=== PATIENT | female | born 1980 | race Caucasian/White ===

== ENCOUNTER 2017-11-26 19:03 | Emergency (ER) | payer OTHER ==
[2017-11-26 19:13] VITALS: BP 123/77; PULSE 78; TEMP 98.4; BMI 33.7
--- NOTE | 2017-11-26 19:16 | PDOC ---
Rapid Medical Evaluation Chief Complaint: Pain Time Seen by Provider: 11/26/17 19:14 Medical Evaluation: Allergies Allergy/AdvReac Type Severity Reaction Status Date / Time No Known Allergies Allergy Verified 11/26/17 19:09 Vital Signs Temp Pulse Resp BP Pulse Ox 98.4 F 78 18 123/77 100 11/26/17 19:09 11/26/17 19:09 11/26/17 19:09 11/26/17 19:09 11/26/17 19:09 11/26/17 19:14 I have performed a brief in-person evaluation of this patient. The patient presents with a chief complaint of: epigastric pain x 1 week, + nausea, denies V/D, hx of gastric bypass/appy/csection Pertinent physical exam findings: well appearing I have ordered the following: Upreg The patient will proceed to the ED for further evaluation.
[2017-11-26 20:29] LABS: BASO % 0.5 % (0-2.0); EOS % 2.5 % (0-4.5); HEMATOCRIT 34.9 % (32.4-45.2); HEMOGLOBIN 11.7 GM/dL (10.7-15.3); LYMPH % 34.8 % (8-40); MCH 31.8 pg (25.7-33.7); MCHC 33.4 g/dl (32.0-36.0); MEAN CELL VOLUME 95.1 fl (80-96); MEAN PLT VOLUME 7.6 fl (7.5-11.1); MONO % 6.7 % (3.8-10.2); NEUT % 55.5 % (42.8-82.8); PLATELET COUNT 253 K/MM3 (134-434); RBC 3.67 M/mm3 (3.60-5.2); RDW 12.7 % (11.6-15.6); WHITE BLOOD COUNT 6.8 K/mm3 (4.0-10.0)
[2017-11-26 21:06] LABS: ALBUMIN 3.9 g/dl (3.4-5.0); ANION GAP 5 (8-16); BLOOD UREA NITROGEN 16 mg/dL (7-18); CALCIUM 8.5 mg/dL (8.5-10.1); CHLORIDE 104 mmol/L (98-107); CO2 29 mmol/L (21-32); CREATININE 0.5 mg/dL (0.55-1.02); GLUCOSE,RANDOM 91 mg/dL (74-106); POTASSIUM 4.2 mmol/L (3.5-5.1); SGOT/AST 17 U/L (15-37); SGPT/ALT 32 U/L (12-78); SODIUM 138 mmol/L (136-145)
[2017-11-26 21:07] LABS: ALK PHOS 66 U/L (45-117); BILIRUBIN,TOTAL 0.3 mg/dL (0.2-1.0); TOT PROT 6.8 g/dl (6.4-8.2)
[2017-11-26] MEDS ORDERED: DICYCLOMINE HCL 10 MG CAPSULE PO ONE (22:57)
--- NOTE | 2017-11-26 23:04 | PDOC ---
History of Present Illness - General History Source: Patient <Herman Cantor - Last Filed: 11/26/17 22:57> - General History Source: Patient Exam Limitations: No Limitations - History of Present Illness Initial Comments: 11/26/17 23:10 The patient is a 37 year old female with a significant PMH of peptic ulcer disease and gastric bypass surgery on 08/22/2015 who presents to the emergency department with epigastric pain associated with food intake. She reports her epigastric pain with associated nausea presents only when she eats and usually resolves in 30 min - 1 hour. She reports having this epigastric pain intermittently since her gastric bypass surgery which has worsened over the past week and particularly today, prompting her visit. She reports taking Omeprazole to no relief. She denies vomiting or diarrhea. The patient denies fever, chills, and constipation. Denies chest pain, shortness of breath, headache and dizziness. Denies dysuria, frequency, urgency and hematuria. Allergies: NKA Past surgical history: Gastric bypass (2 years ago). Appendectomy. . Social history: No reported cigarette, alcohol, or drug use. PCP: Not on Staff. <Raghavendra Bautista - Last Filed: 11/26/17 23:11> - General Chief Complaint: Pain Stated Complaint: STOMACH PAIN Time Seen by Provider: 11/26/17 19:14 Past History - Past Medical History Anemia: Yes Asthma: No Cancer: No Cardiac Disorders: No COPD: No Diabetes: No HTN: No Seizures: No Thyroid Disease: No - Surgical History Abdominal Surgery: Yes (CYSTS REMOVED FROM OVARY) Appendectomy: Yes GI Surgery: Yes (GASTRIC BYPASS) - Reproductive History (#): 2 Para: 1 Cervical CA: No Dysfunctional Uterine Bleeding: No Ectopic : No Endometrial CA: No Polycystic Ovaries: No Therapeutic (s) & number: No Tubal Ligation: No - Suicide/Smoking/Psychosocial Hx Smoking Status: No Smoking History: Never smoked Have you smoked in the past 12 months: No Number of Cigarettes Smoked Daily: 0 Information on smoking cessation initiated: No Hx Alcohol Use: No Drug/Substance Use Hx: No Substance Use Type: None Hx Substance Use Treatment: No <Herman Cantor - Last Filed: 11/26/17 22:57> <Raghavendra aButista - Last Filed: 11/26/17 23:11> - Past Medical History Allergies/Adverse Reactions: Allergies Allergy/AdvReac Type Severity Reaction Status Date / Time No Known Allergies Allergy Verified 11/26/17 19:09 Home Medications: Ambulatory Orders Calcium Carbonate/Vitamin D3 [Calcium 600 + Vit D 400 Tablet] 1 each PO BID Iron Polysaccharide Complex [Ferrex 150] 150 mg PO DAILY 09/11/15 Multivitamins [Tab-A-Vit -] 1 tab PO BID 09/11/15 Acetaminophen W/ Codeine #3 [Tylenol # 3 -] 1 tab PO Q6H #20 tablet 09/12/15 Omeprazole [Prilosec] 40 mg PO DAILY #30 capsule. 09/12/15 Dicyclomine HCl [Bentyl] 20 mg PO Q6H #30 tablet 11/26/17 Review of Systems - Review of Systems Able to Perform ROS?: Yes Comments:: 11/26/17 23:10 CONSTITUTIONAL: Absent: fever, chills, diaphoresis, generalized weakness, malaise, loss of appetite HEENT: Absent: rhinorrhea, nasal congestion, throat pain, throat swelling, difficulty swallowing, mouth swelling, ear pain, eye pain, visual Changes CARDIOVASCULAR: Absent: chest pain, syncope, palpitations, irregular heart rate, lightheadedness , peripheral edema RESPIRATORY: Absent: cough, shortness of breath, dyspnea with exertion, orthopnea, wheezing, stridor, hemoptysis GASTROINTESTINAL: (+) Epigastric pain associated with food intake. (+) Nausea. Absent: abdominal distension, vomiting, diarrhea, constipation, melena, hematochezia GENITOURINARY: Absent: dysuria, frequency, urgency, hesitancy, hematuria, flank pain, genital pain MUSCULOSKELETAL: Absent: myalgia, arthralgia, joint swelling SKIN: Absent: rash, itching, pallor HEMATOLOGIC/IMMUNOLOGIC: Absent: easy bleeding, easy bruising, lymphadenopathy, frequent infections ENDOCRINE: Absent: unexplained weight gain, unexplained weight loss, heat intolerance, cold intolerance NEUROLOGIC: Absent: headache, focal weakness or paresthesias, dizziness, unsteady gait, seizure, mental status changes, bladder or bowel incontinence PSYCHIATRIC: Absent: anxiety, depression, suicidal or homicidal ideation, hallucinations. <Raghavendra Bautista - Last Filed: 11/26/17 23:11> *Physical Exam - Vital Signs Last Vital Signs Temp Pulse Resp BP Pulse Ox 98.4 F 78 18 123/77 100 11/26/17 19:09 11/26/17 19:09 11/26/17 19:09 11/26/17 19:09 11/26/17 19:09 <DevaughnHerman - Last Filed: 11/26/17 22:57> - Vital Signs Last Vital Signs Temp Pulse Resp BP Pulse Ox 98.4 F 78 18 123/77 100 11/26/17 19:09 11/26/17 19:09 11/26/17 19:09 11/26/17 19:09 11/26/17 19:09 - Physical Exam Comments: 11/26/17 23:11 GENERAL: Well developed, well nourished. Awake and alert. No acute distress. HEENT: Normocephalic, atraumatic. PERRLA, EOMI. No conjunctival pallor. Sclera are non- icteric. Moist mucous membranes. Oropharynx is clear. NECK: Supple. Full ROM. No JVD. Carotid pulses 2+ and symmetric, without bruits. No thyromegaly. No lymphadenopathy. CARDIOVASCULAR: Regular rate and rhythm. No murmurs, rubs, or gallops. Distal pulses are 2+ and symmetric. PULMONARY: No evidence of respiratory distress. Lungs clear to auscultation bilaterally. No wheezing, rales or rhonchi. ABDOMINAL: Soft. Non-tender. Non-distended. No rebound or guarding. No organomegaly. Normoactive bowel sounds. MUSCULOSKELETAL Normal range of motion at all joints. No bony deformities or tenderness. No CVA tenderness. EXTREMITIES: No cyanosis. No clubbing. No edema. No calf tenderness. SKIN: Warm and dry. Normal capillary refill. No rashes. No jaundice. NEUROLOGICAL: Alert, awake, appropriate. Cranial nerves 2-12 intact. No deficits to light touch and temperature in face, upper extremities and lower extremities. No motor deficits in the in face, upper extremities and lower extremities. Normoreflexic in the upper and lower extremities. Normal speech. Toes are downgoing bilaterally. Gait is normal without ataxia. PSYCHIATRIC: Cooperative. Good eye contact. Appropriate mood and affect. <Raghavendra Bautista - Last Filed: 11/26/17 23:11> ED Treatment Course - LABORATORY CBC & Chemistry Diagram: 11/26/17 20:19 11/26/17 20:19 - ADDITIONAL ORDERS Additional order review: Laboratory Results 11/26/17 11/26/17 11/26/17 20:30 20:19 20:19 Sodium 138 Potassium 4.2 Chloride 104 Carbon Dioxide 29 Anion Gap 5 L BUN 16 Creatinine 0.5 L Creat Clearance w eGFR > 60 Random Glucose 91 Calcium 8.5 Total Bilirubin 0.3 D AST 17 ALT 32 Alkaline Phosphatase 66 Total Protein 6.8 Albumin 3.9 Lipase 159 Urine HCG, Qual Negative 11/26/17 20:19 RBC 3.67 MCV 95.1 MCHC 33.4 RDW 12.7 MPV 7.6 Neutrophils % 55.5 Lymphocytes % 34.8 D Monocytes % 6.7 Eosinophils % 2.5 Basophils % 0.5 <Herman Cantor - Last Filed: 11/26/17 22:57> - LABORATORY CBC & Chemistry Diagram: 11/26/17 20:19 11/26/17 20:19 - ADDITIONAL ORDERS Additional order review: Laboratory Results 11/26/17 11/26/17 11/26/17 20:30 20:19 20:19 Sodium 138 Potassium 4.2 Chloride 104 Carbon Dioxide 29 Anion Gap 5 L BUN 16 Creatinine 0.5 L Creat Clearance w eGFR > 60 Random Glucose 91 Calcium 8.5 Total Bilirubin 0.3 D AST 17 ALT 32 Alkaline Phosphatase 66 Total Protein 6.8 Albumin 3.9 Lipase 159 Urine HCG, Qual Negative 11/26/17 20:19 RBC 3.67 MCV 95.1 MCHC 33.4 RDW 12.7 MPV 7.6 Neutrophils % 55.5 Lymphocytes % 34.8 D Monocytes % 6.7 Eosinophils % 2.5 Basophils % 0.5 <Raghavendra Bautista - Last Filed: 11/26/17 23:11> *DC/Admit/Observation/Transfer - Discharge Dispostion Admit: No <Herman Cantor - Last Filed: 11/26/17 22:57> - Attestations Scribe Attestion: 11/26/17 23:11 Documentation prepared by Raghavendra Bautista, acting as medical assistant float for Herman Cantor DO. <Raghavendra Bautista - Last Filed: 11/26/17 23:11> Diagnosis at time of Disposition: Abdominal pain Qualifiers: Abdominal location: epigastric Qualified Code(s): R10.13 - Epigastric pain - Discharge Dispostion Disposition: HOME Condition at time of disposition: Stable - Prescriptions Prescriptions: Dicyclomine HCl [Bentyl] 20 mg PO Q6H #30 tablet - Referrals Referrals: ON STAFF,NOT [Primary Care Provider] - Juancho Madera MD [Staff Physician] - - Patient Instructions Printed Discharge Instructions: DI for Abdominal Pain-Adult Additional Instructions: Please follow up with the doctor referred to you from the ER. TRy to eat 6 small meals throughout the day. Take medication as directed Print Language: BRUNEIAN - Post Discharge Activity
[2017-11-26] MEDS ORDERED: DICYCLOMINE HCL 10 MG CAPSULE ONE (23:20)
== END 2017-11-26 23:33 | disposition home or self-care (01) ==
LOC: JER 19:03
DX: R10.13 Epigastric pain (principal); Z98.84 Bariatric surgery status; Z87.11 Personal history of peptic ulcer disease
CPT/HCPCS: 36415; 80053; 83690; 84703; 85025; 99282-25

== ENCOUNTER 2023-03-16 17:08 | Emergency (ER) | payer OTHER ==
[2023-03-16 17:12] VITALS: BP 127/83; PULSE 84; RESP 18; TEMP 97; BMI 37.8
[2023-03-16] MEDS ORDERED: KETOROLAC TROMETHAMINE 30 MG/1 ML VIAL IM ONE (17:57)
[2023-03-16] MEDS ORDERED: KETOROLAC TROMETHAMINE 30 MG/1 ML VIAL ONE (18:03)
== END 2023-03-16 20:17 | disposition home or self-care (01) ==
LOC: JER 17:08 → JERFT 17:08
PROC: 3E0233Z Introduction of Anti-inflammatory into Muscle, Percutaneous Approach (ICD-10-PCS; principal; 2023-03-16)
DX: M75.32 Calcific tendinitis of left shoulder (principal)
CPT/HCPCS: 73030-TC-LT-FY; 99284-25